=== PATIENT | female | born 1985 | race Caucasian/White ===

== ENCOUNTER 2017-11-11 02:38 | Inpatient (IN) | payer BC ==
[~2017-11-11] VITALS: Ht 157.5 cm; Wt 67.1 kg
[2017-11-11] VITALS (19 sets, daily range): BP systolic 101–132; BP diastolic 59–87
[~2017-11-11 02:38] MED LIST: EXPECTA PRENAT1 EACH PO; IBUPROFEN800 MG PO
[2017-11-11] MEDS ORDERED: DICLEGIS DR 101 EACH PO (03:05)
[2017-11-11 03:51] LABS: BASOPHIL (%) 0.2 % (0-1); EOSINOPHIL COUNT 0.3 K/uL (0-0.3); HEMATOCRIT 31.3 % (36.0-46.0); HEMOGLOBIN 10.5 G/DL (11.9-15.5); IMMATURE GRANULOCYTE (%) 0.7 % (0.0-0.7); LYMPHOCYTE (%) 24.8 % (15-42); LYMPHOCYTE COUNT 3.1 K/uL (1.0-2.8); MCH 29.2 PG (29.0-34.0); MCHC 33.5 G/DL (30.0-36.0); MCV 86.9 FL (83-99); MONOCYTE (%) 5.8 % (3-12); MONOCYTE COUNT 0.7 K/uL (0-0.8); NEUTROPHIL (%) 66.5 % (45-76); NEUTROPHIL COUNT 8.3 K/uL (1.8-6.4); PLATELET COUNT 279 K/uL (156-360); RBC DIS.WIDTH-CV 14.2 % (11.8-14.6); RBC DIS.WIDTH-SD 45.1 % (39-53); WHITE BLOOD COUNT 12.4 K/uL (4.1-10.2)
[2017-11-12 07:39] VITALS: BP 117/69
[2017-11-12] MEDS ORDERED: IBUPROFEN800 MG PO (10:19)
== END 2017-11-12 15:20 | disposition home or self-care (01) | DRG 775 ==
LOC: LDRP-OP 02:38 → 2WEST 02:39 → LDRP-OP 12-26 13:51
PROVIDERS: Advanced Practice Midwife
DX: O22.43 Hemorrhoids in pregnancy, third trimester (principal); O99.89 Other specified diseases and conditions complicating pregnancy, childbirth and the puerperium; M41.9 Scoliosis, unspecified; O12.04 Gestational edema, complicating childbirth; Z37.0 Single live birth; Z3A.38 38 weeks gestation of pregnancy
CPT/HCPCS: 85025; 90686; C1755; J2405; J7120